=== PATIENT | male | born 1965 ===

== ENCOUNTER 2023-07-01 18:30 | Emergency (ER) | payer OTHER ==
[2023-07-01] MEDS ORDERED: Ondansetron ODT 4 MG TAB ONE (20:22)
[2023-07-01] MEDS ORDERED: HYDROcodone/Acetaminophen 5/325 mg Tablet ONE (20:22)
[2023-07-01] MEDS ORDERED: Cyclobenzaprine 10 MG TAB ONE (20:22)
== END 2023-07-01 21:20 | disposition home or self-care (01) ==
LOC: CSHERS 18:30 → EEVIPCON 18:30 → CSHERS 21:20
DX: S46.911A Strain of unspecified muscle, fascia and tendon at shoulder and upper arm level, right arm, initial encounter (principal); S00.83XA Contusion of other part of head, initial encounter; M25.551 Pain in right hip; I10 Essential (primary) hypertension; I25.10 Atherosclerotic heart disease of native coronary artery without angina pectoris; K21.9 Gastro-esophageal reflux disease without esophagitis; Z79.82 Long term (current) use of aspirin; W01.0XXA Fall on same level from slipping, tripping and stumbling without subsequent striking against object, initial encounter
CPT/HCPCS: 70450; 72125; Q0162